=== PATIENT | female | born 1990 | race Caucasian/White ===

== ENCOUNTER → 2017-11-25 | Outpatient (CLI) | payer BC ==
--- NOTE | 2017-11-25 12:12 | Diagnostic Imaging Report ---
PROCEDURE: US Gallbladder. TECHNIQUE: Multiple real-time grayscale images were obtained over the right upper quadrant in various projections. INDICATION: Right upper quadrant pain COMPARISON: None FINDINGS: The liver appears unremarkable. There is no biliary dilatation. The common bile duct measures about 2 mm. Doppler imaging demonstrates normal hepatopedal flow in the main portal vein. The pancreas and gallbladder appear unremarkable. The right kidney measures 9.6 cm in length and appears normal. There is no ascites or sonographic Lynch's sign. IMPRESSION: No acute abnormality is demonstrated. Dictated by: Dictated on workstation # [id number]
== END ==
LOC: RAD 09:48
PROVIDERS: ATTEND Obstetrics & Gynecology
DX: R10.11 Right upper quadrant pain (principal)
CPT/HCPCS: 76705

== ENCOUNTER 2018-05-28 04:41 | Inpatient (IN) | payer BC ==
[2018-05-28] VITALS (29 sets, daily range): BP systolic 120–169; BP diastolic 65–103
[~2018-05-28] VITALS: Ht 162.6 cm; Wt 71.7 kg
[2018-05-28] MEDS ORDERED: AMPICILLIN 2,000 MG/20 ML (IV USE) ONE (05:07)
[2018-05-28] MEDS ORDERED: D5 LR IV SOLUTION 1,000 ML IV ONE (05:07)
[2018-05-28] MEDS ORDERED: NS (IVPB) 50 ML ONE (05:08)
[2018-05-28] MEDS ORDERED: AMPICILLIN FOR IV USE 2,000 MG in NS (IVPB) 50 ML IV SCH (05:14)
[2018-05-28] MEDS ORDERED: D5 LR IV SOLUTION 1,000 ML IV SCH (05:14)
[2018-05-28] MEDS ORDERED: MULT-633 PO (05:20)
[2018-05-28 05:57] LABS: BASOPHILS % (AUTO) 0 % (0-10); EOSINOPHILS # (AUTO) 0.2 10^3/uL (0.0-0.3); EOSINOPHILS % (AUTO) 2 % (0-10); HEMATOCRIT 34 % (35-52); HEMOGLOBIN 12.1 G/DL (11.5-16.0); LYMPHOCYTES # (AUTO) 2.3 X 10^3 (1.0-4.0); LYMPHOCYTES % (AUTO) 21 % (12-44); MEAN CORPUSCULAR HEMOGLOBIN 29 PG (25-34); MEAN CORPUSCULAR HGB CONC 36 G/DL (32-36); MEAN CORPUSCULAR VOLUME 81 FL (80-99); MONOCYTES # (AUTO) 0.8 X 10^3 (0.0-1.0); MONOCYTES % (AUTO) 7 % (0-12); NEUTROPHILS # (AUTO) 7.9 X 10^3 (1.8-7.8); NEUTROPHILS % (AUTO) 70 % (42-75); PLATELET COUNT 184 10^3/uL (130-400); RED CELL DISTRIBUTION WIDTH 14.1 % (10.0-14.5); WHITE BLOOD COUNT 11.3 10^3/uL (4.3-11.0)
[2018-05-28] MEDS ORDERED: OXYTOCIN/NORMAL SALINE 500 ML IV ONE (06:24)
[2018-05-28] MEDS ORDERED: OXYTOCIN/NORMAL SALINE 500 ML IV SCH ×2 (06:36→07:56)
[2018-05-28] MEDS ORDERED: SUFENTA 0.6MCG/ML BUPIVA 0.125 100 ML ONE (06:46)
[2018-05-28] MEDS ORDERED: fentaNYL INJECTION 100 MCG/2 ML AMP ONE (07:08)
[2018-05-28] MEDS ORDERED: LIDOCAINE PF 1% 5 ML (XYLOCAINE) AMP ONE (07:08)
[2018-05-28] MEDS ORDERED: BUPIVACAINE 0.25% 30 ML (SENSORCAINE) VIAL ONE (07:09)
[2018-05-28] MEDS ORDERED: FLU QUADRIvalent (5+ YOA) 2018-2019 (AFLURIA) 0.5 ML IM ONE (07:30)
[2018-05-28] MEDS ORDERED: LIDOCAINE PF 2% 5 ML (XYLOCAINE) VIAL ONE (07:43)
--- NOTE | 2018-05-28 07:56 | History & Physical ---
History and Physical Date Seen by Provider: May 28, 2018 Time Seen by Provider: 07:54 This patient is a 26-year-old G1 white female with a due date of 1317 presenting with spontaneous rupture membranes and active labor. GBS culture was positive and she was started on antibiotics on admission. She's had no problems with to date. Allergies are to sulfa which causes a rash Medications are vitamins Medical social histories are per the antepartum record HEENT exam is normal Neck is with no lymphadenopathy no thyromegaly Abdomen is gravid soft nontender nondistended Extremities show no clubbing cyanosis. There is no Homans sign. Pelvic exam per the nurse shows a cervix now 10 cm dilated 100 percent effaced vertex presentation with gross rupture membranes. monitor shows contractions about every 2 minutes with a normal heart rate pattern. Laboratory Tests 05/28/18 05:20 Assessment and plan term at 38 weeks gestation with spontaneous labor and with a somewhat precipitous course. Patient will deliver vaginally shortly. Allergies and Home Medications Allergies Coded Allergies: Sulfa (Sulfonamide Antibiotics) (Verified Allergy, Unknown, 05/28/18) Home Medications Multivitamin 1 Each Tablet, 1 EACH PO DAILY, (Reported) Patient Home Medication List Home Medication List Reviewed: Yes Clinical Quality Measures DVT/VTE Risk/Contraindication: Risk Factor Score Per Nursin RFS Level Per Nursing on Admit: 1=Low/No VTE PPX JIMI HIGHTOWER MD May 28, 2018 7:56 am
[2018-05-28] MEDS ORDERED: TETANUS,DIPTH,PERTUSS P/F (BOOSTRIX) 0.5 ML VIAL IM ONE (08:00)
[2018-05-28] MEDS ORDERED: ONDANSETRON 4 MG/2 ML (SDV) Z0FRAN IVP PRN (08:00)
[2018-05-28] MEDS ORDERED: oxyCODONE/APAP 5/325MG (PERCOCET 5) TABLET PO PRN (08:00)
[2018-05-28] MEDS ORDERED: MEASLES,MUMPS,RUBELLA 1 EA INJ SC ONE (08:00)
[2018-05-28] MEDS ORDERED: LIDOCAINE/EPI 2% 1:200,00 (XYLOCAINE) 10 ML VIAL ONE (08:10)
[2018-05-28] MEDS ORDERED: LACTATED RINGERS 1,000 ML IV SCH (08:46)
[2018-05-28] MEDS ORDERED: NALOXONE 0.4 MG/ML 1 ML (NARCAN) VIAL IV PRN ×2 (09:00)
[2018-05-28] MEDS ORDERED: METOCLOPRAMIDE INJ 10 MG/2 ML (REGLAN) IV PRN (09:00)
[2018-05-28] MEDS ORDERED: EPIDURAL (SUFENTA 0.6MCG/ML BUPIVA 0.125%) 100 ML BAG EPI PRN (09:00)
[2018-05-28] MEDS ORDERED: diphenhydrAMINE 50 MG/ML INJ (BENADRYL) IV PRN (09:00)
[2018-05-28] MEDS: DOCUSATE SODIUM 100 MG (COLACE) CAP PO SCH ×2 (09:00→20:10)
[2018-05-28] MEDS ORDERED: ONDANSETRON 4 MG/2 ML (SDV) Z0FRAN IV PRN (09:00)
[2018-05-28] MEDS ORDERED: AMPICILLIN FOR IV USE 1,000 MG in NS (IVPB) 50 ML IV SCH (09:15)
--- NOTE | 2018-05-28 10:38 | OPERATIVE REPORT ---
DATE OF SERVICE: 05/28/2018 DELIVERY NOTE The patient delivered by a term spontaneous vaginal delivery a viable female with Apgars of 8 and 9 at 1 and 5 minutes respectively, weight was 6 pounds 3 ounces, time of 09:02 and a cord arterial blood pH that is pending. The patient delivered over a second-degree perineal laceration under epidural and local analgesia. The was bulb suctioned on delivery of the head and again on completion of delivery. The umbilical cord was doubly clamped, father cut the cord and the baby was passed to mom's abdomen. The cervix, vagina, rectum and perineum were examined and found intact, except for the second-degree perineal laceration, which was repaired with a single suture of 3-0 Vicryl Rapide in the usual manner to good reapproximation and good hemostasis. Sponge and needle counts were correct on completion of delivery and repair. Estimated blood loss was around 300 mL. The patient remained in the LDR for recovery. The baby remained with the mom. Job ID: [id number] DocumentID: [id number] Dictated Date: 05/28/2018 09:20:16 Computer Game Programmer Date: 05/28/2018 10:37:50 Dictated By: JIMI HIGHTOWER MD MTDD
[2018-05-28] MEDS: KETOROLAC 30 MG/ML VIAL IV SCH ×2 (10:40→17:16)
[2018-05-28] MEDS: IBUPROFEN 800 MG (MOTRIN) TAB PO SCH (12:15)
[2018-05-28] MEDS: BENZOCAINE/MENTHOL (DERMOPLAST) 56 ML CAN TP PRN (12:30)
[2018-05-28] MEDS ORDERED: IBUPROFEN 800 MG (MOTRIN) TAB PO ONE (23:23)
[2018-05-29] MEDS: IBUPROFEN 800 MG (MOTRIN) TAB PO SCH ×5 (00:16→23:07)
[2018-05-29 01:34] VITALS: BP 122/71
[2018-05-29 05:59] VITALS: BP 129/84
--- NOTE | 2018-05-29 08:05 | Progress Note-Standard ---
Standard Progress Note Progress Notes/Assess & Plan Date Seen by a Provider: May 29, 2018 Time Seen by a Provider: 08:03 Progress/Assessment & Plan This patient is without complaint. She is ambulating, voiding, tolerating oral intake well has good pain control. Patient denies chest pain, denies shortness of breath, denies nausea vomiting, and denies headache. Vital signs are stable. Patient is afebrile. Vital Signs 05/28/18 05/29/18 08:45 05:59 Temp 97.6 Pulse 79 Resp 18 B/P (MAP) 129/84 (99) Pulse Ox 99 O2 Delivery Room Air The uterine fundus is firm below the umbilicus and nontender Extremities show no clubbing or cyanosis. There is no Homans sign. Assessment and plan day number 1 status post term spontaneous vaginal delivery doing well. Plan is for routine convalescence care today and discharge home tomorrow JIMI HIGHTOWER MD May 29, 2018 8:05 am
[2018-05-29] MEDS ORDERED: IBUP-1780 PO (08:07)
[2018-05-29] MEDS ORDERED: OXYC1TAB87 PO (08:07)
[2018-05-29] MEDS ORDERED: DOCU100C37 PO (08:07)
--- NOTE | 2018-05-29 08:08 | Discharge Instructions ---
Discharge Instructions Discharge Medications New, Converted or Re-Newed RX: RX on Chart Patient Instructions Patient Instructions: As directed Return to The Hospital For: As directed Activity & Diet Discharge Diet: No Restrictions Activity as Tolerated: No Orders-Post D/C & Referrals Follow Up Appt: Call to make follow up appt. for patient in 4 weeks. Activity Per routine post vaginal delivery instructions. Diet as tolerated Patient may shower or tub bathe as desired. JIMI HIGHTOWER MD May 29, 2018 8:08 am
[2018-05-29 11:45] VITALS: BP 118/80
--- NOTE | 2018-05-29 13:22 | Anesthesia-Regional Post-Op ---
Regional Patient Condition Mental Status: Alert, Oriented x3 Circulation: Same as Pre-Op Headache: Absent Sensation: Full Recovery Motor Block: Absent Post Op Complications Complications None Follow Up Care/Instructions Patient Instructions None needed. Anesthesia/Patient Condition Patient is doing well, no complaints, stable vital signs, no apparent adverse anesthesia problems. No complications reported per nursing. SHAHEED AVILA CRNA May 29, 2018 13:22
[2018-05-29 19:45] VITALS: BP 146/86
[2018-05-29] MEDS: DOCUSATE SODIUM 100 MG (COLACE) CAP PO SCH ×2 (22:22→23:07)
[2018-05-29] MEDS: KETOROLAC 30 MG/ML VIAL IV SCH ×2 (22:23→22:24)
[2018-05-30 04:45] VITALS: BP 133/79
[2018-05-30] MEDS: IBUPROFEN 800 MG (MOTRIN) TAB PO SCH (04:48)
--- NOTE | 2018-05-30 07:55 | Progress Note-Standard ---
Standard Progress Note Progress Notes/Assess & Plan Date Seen by a Provider: May 30, 2018 Time Seen by a Provider: 07:54 Progress/Assessment & Plan This patient is without complaint. She is ambulating, voiding, tolerating oral intake well has good pain control. Patient denies chest pain, denies shortness of breath, denies nausea vomiting, and denies headache. Vital signs are stable. Patient is afebrile. Vital Signs 05/28/18 05/29/18 08:45 05:59 Temp 97.6 Pulse 79 Resp 18 B/P (MAP) 129/84 (99) Pulse Ox 99 O2 Delivery Room Air The uterine fundus is firm below the umbilicus and nontender Extremities show no clubbing or cyanosis. There is no Homans sign. Assessment and plan day number 1 status post term spontaneous vaginal delivery doing well. Plan is for routine convalescence care today and discharge home tomorrow May 30, 2018 Patient is without complaint. She is ambulating, voiding, tolerating oral intake well has good pain control. Patient denies chest pain, denies shortness breath, denies nausea vomiting, and denies headache. Patient is requesting discharge home. Vital Signs 05/29/18 05/30/18 11:45 04:45 Temp 97.3 Pulse 89 Resp 16 B/P (MAP) 133/79 (97) Pulse Ox 98 O2 Delivery Room Air Vital signs are stable. Patient is afebrile. Fundus is firm below the umbilicus and nontender. Extreme show no clubbing cyanosis. There is no Homans sign. Assessment and plan day number 2 status post term spontaneous vaginal delivery at 38 weeks gestation. Plan is for discharge home with follow- up in clinic Final Diagnosis 38 week spontaneous vaginal delivery JIMI HIGHTOWER MD May 30, 2018 7:55 am
[2018-05-30] MEDS: DOCUSATE SODIUM 100 MG (COLACE) CAP PO SCH (09:12)
[2018-05-30 09:34] VITALS: BP 147/82
[2018-05-30 11:30] VITALS: BP 143/83
[2018-05-30] MEDS ORDERED: TETANUS,DIPTH,PERTUSS P/F (BOOSTRIX) 0.5 ML VIAL IM ONE (11:35)
[2018-05-30] MEDS: BENZOCAINE/MENTHOL (DERMOPLAST) 56 ML CAN TP PRN (11:40)
[2018-05-30] MEDS ORDERED: FLU QUADRIvalent (5+ YOA) 2018-2019 (AFLURIA) 0.5 ML IM ONE (11:43)
[2018-05-30 12:00] VITALS: BP 143/83
== END 2018-05-30 12:55 | disposition home or self-care (01) | DRG 807 ==
LOC: WSo 04:41 → LDRP 04:42 → WSo 05:20 → LDRP 05:20
PROVIDERS: ADMIT Obstetrics & Gynecology; ATTEND Obstetrics & Gynecology
PROC: 10E0XZZ Delivery of Products of Conception, External Approach (ICD-10-PCS; principal; 2018-05-28)
PROC: 0KQM0ZZ Repair Perineum Muscle, Open Approach (ICD-10-PCS; 2018-05-28)
DX: O70.1 Second degree perineal laceration during delivery (principal); O99.824 Streptococcus B carrier state complicating childbirth; Z37.0 Single live birth; Z3A.38 38 weeks gestation of pregnancy
CPT/HCPCS: 36415; 82570; 84156; 85025; 86850; 86900; 86901; 99212

== ENCOUNTER 2018-06-05 22:11 | Emergency (ER) | payer BC ==
[~2018-06-05] VITALS: Ht 162.6 cm; Wt 62.1 kg
[~2018-06-05 22:11] MED LIST: DOCU100C37 PO; IBUP-1780 PO; MULT-633 PO; OXYC1TAB87 PO
[2018-06-05] MEDS ORDERED: ONDANSETRON 4 MG (ZOFRAN) ORAL DISSOLVE TAB SL ONE (22:45)
[2018-06-05] MEDS ORDERED: ANTACID SUSP 30 ML UDC (MYLANTA) PO ONE (22:45)
[2018-06-05] MEDS ORDERED: LIDOCAINE 2% VISCOUS 15 ML UDC PO ONE (22:45)
[2018-06-05 23:03] LABS: BILIRUBIN,URINE NEGATIVE (NEGATIVE); CLARITY,URINE SLIGHTLY CLOUDY; COLOR,URINE YELLOW; GLUCOSE, URINE (UA) NEGATIVE (NEGATIVE); KETONES,URINE NEGATIVE (NEGATIVE); LEUKOCYTE ESTERASE ,URINE 3+ (NEGATIVE); NITRITE,URINE NEGATIVE (NEGATIVE); PH,URINE 5 (5-9); PROTEIN,URINE 1+ (NEGATIVE); UROBILINOGEN,URINE NORMAL (NORMAL)
[2018-06-05 23:12] LABS: BACTERIA,URINE FEW /HPF; RBC,URINE 50-100 /HPF; RENAL EPITHELIAL CELLS,URINE RARE /HPF; WBC,URINE 50-100 /HPF
[2018-06-06 00:01] LABS: BASOPHILS % (AUTO) 1 % (0-10); EOSINOPHILS # (AUTO) 0.3 10^3/uL (0.0-0.3); EOSINOPHILS % (AUTO) 3 % (0-10); HEMATOCRIT 34 % (35-52); HEMOGLOBIN 11.9 G/DL (11.5-16.0); LYMPHOCYTES % (AUTO) 24 % (12-44); MEAN CORPUSCULAR HEMOGLOBIN 29 PG (25-34); MEAN CORPUSCULAR HGB CONC 36 G/DL (32-36); MEAN CORPUSCULAR VOLUME 81 FL (80-99); MEAN PLATELET VOLUME 8.6 FL (7.4-10.4); MONOCYTES # (AUTO) 0.6 X 10^3 (0.0-1.0); MONOCYTES % (AUTO) 8 % (0-12); NEUTROPHILS # (AUTO) 5.2 X 10^3 (1.8-7.8); NEUTROPHILS % (AUTO) 65 % (42-75); PLATELET COUNT 278 10^3/uL (130-400); RED BLOOD COUNT 4.14 10^6/uL (4.35-5.85); WHITE BLOOD COUNT 8.1 10^3/uL (4.3-11.0)
[2018-06-06 00:21] LABS: ALANINE AMINOTRANSFERASE 29 U/L (0-55); ALBUMIN 3.7 GM/DL (3.2-4.5); ALKALINE PHOSPHATASE 82 U/L (40-136); BILIRUBIN,TOTAL 0.8 MG/DL (0.1-1.0); BUN/CREATININE RATIO 13; CALCIUM 9.2 MG/DL (8.5-10.1); CARBON DIOXIDE 20 MMOL/L (21-32); CHLORIDE 108 MMOL/L (98-107); CREATININE SERUM 0.87 MG/DL (0.60-1.30); GFR ESTIMATED > 60; GLUCOSE 102 MG/DL (70-105); LIPASE 13 U/L (8-78); POTASSIUM 3.4 MMOL/L (3.6-5.0); SODIUM 141 MMOL/L (135-145); TOTAL PROTEIN 6.7 GM/DL (6.4-8.2)
[2018-06-06] MEDS ORDERED: RX-ONDANSETRON 4 MG ODT (ZOFRAN) PPK #4 SL STA (00:41)
--- NOTE | 2018-06-06 00:41 | ED Abdominal Pain ---
General Chief Complaint: Abdominal/GI Problems Stated Complaint: ABD PAIN Nursing Triage Note: Pt ambulated to 4 w/o difficulty. Pt c/o upper abdominal pain radiating into the back. Pt delivered a baby last Wednesday via vaginal . Pt states she was seen in the ED at [facility] on Wednesday and was diagnosed with an ileus. Pt states pain has been worse after eating, but today pt became nauseated while eating. Pt states she has been having normal bowel movements. Sepsis Screen: No Definite Risk Source of Information: Patient Exam Limitations: No Limitations History of Present Illness Date Seen by Provider: Jun 06, 2018 Time Seen by Provider: 22:32 Initial Comments This 27-year-old young lady presents to the emergency room with upper abdominal pain day 7. She had been seen at [facility] in [place] on Wednesday for abdominal pain. She was told a suspected she had an ileus. This was treated and she has been able to produce a bowel movements but the pain has intensified. She has delayed exacerbation of pain after eating. The pain radiates into her back and her chest. She has had some nausea with it but no vomiting. She is afebrile. She has had a little bit of dysuria recently as well. Allergies and Home Medications Allergies Coded Allergies: Sulfa (Sulfonamide Antibiotics) (Verified Allergy, Unknown, 05/28/18) Home Medications Cephalexin 500 Mg Capsule, 500 MG PO QID Prescribed by: YODIT QURESHI on 06/06/18 014 Docusate Sodium 100 Mg Capsule, 100 MG PO BID Prescribed by: JIMI OLIVO on 05/29/18 08 Ibuprofen 800 Mg Tablet, 800 MG PO Q6H Prescribed by: JIMI OLIVO on 05/29/18 08 Multivitamin 1 Each Tablet, 1 EACH PO DAILY, (Reported) Omeprazole 20 Mg Capsule.dr, 20 MG PO BID Prescribed by: YODIT QURESHI on 06/06/18 014 Oxycodone HCl/Acetaminophen 1 Each Tablet, 1 TAB PO Q4H PRN for PAIN-MODERATE You may continue to take this medication as you were taking it when you were hospitalized for your delivery Prescribed by: JIMI OLIVO on 05/29/18 08 Patient Home Medication List Home Medication List Reviewed: Yes Review of Systems Review of Systems Constitutional: no symptoms reported EENTM: No Symptoms Reported Respiratory: No Symptoms Reported Cardiovascular: No Symptoms Reported Gastrointestinal: See HPI Genitourinary: See HPI Musculoskeletal: no symptoms reported Skin: no symptoms reported Psychiatric/Neurological: No Symptoms Reported Endocrine: No Symptoms Reported Hematologic/Lymphatic: No Symptoms Reported Past Abdphit-Yrjgvg-Xaolyr Hx Patient Social History Alcohol Use: Denies Use Recreational Drug Use: No Smoking Status: Never a Smoker 2nd Hand Smoke Exposure: No Recent Foreign Travel: No Contact w/Someone Who Travel: No Recent Infectious Disease Expo: No Recent Hopitalizations: No Physical Abuse: No Sexual Abuse: No Immunizations Up To Date Tetanus Booster (TDap): Unknown Seasonal Allergies Seasonal Allergies: No Past Medical History Surgeries: No Respiratory: No Currently Using CPAP: No Currently Using BIPAP: No Cardiac: No Neurological: No : No Reproductive Disorders: No Genitourinary: No Gastrointestinal: No Musculoskeletal: No Endocrine: No HEENT: No Cancer: No Psychosocial: No Integumentary: No Blood Disorders: No Adverse Reaction/Blood Tranf: No Physical Exam Vital Signs Vital Signs - First Documented 06/05/18 22:25 Temp 97.8 Pulse 64 Resp 14 B/P (MAP) 145/98 (114) Pulse Ox 98 O2 Delivery Room Air Capillary Refill : Less Than 3 Seconds Height/Weight/BMI Height: 5'4.00" Weight: 137lbs. 2.0oz. 62.460783wt; 27.1 BMI Method:Stated General Appearance: WD/WN, no apparent distress HEENT: PERRL/EOMI, normal ENT inspection, pharynx normal Neck: normal inspection Respiratory: lungs clear, normal breath sounds, no respiratory distress Cardiovascular: regular rate, rhythm, no edema, no murmur Gastrointestinal: normal bowel sounds, soft, tenderness (epigastrium and right upper quadrant) Extremities: normal inspection, no pedal edema Neurologic/Psychiatric: nursery attendant II-XII nml as tested, no motor/sensory deficits, alert, normal mood/affect, oriented x 3 Skin: normal color, warm/dry Progress/Results/Core Measures Results/Orders Lab Results Laboratory Tests Test 06/05/18 22:55 06/05/18 23:54 Range/Units Urine Color YELLOW Urine Clarity SLIGHTLY CLOUDY Urine pH 5 5-9 Urine Specific [place] 1.015 L 1.016-1.022 Urine Protein 1+ H NEGATIVE Urine Glucose (UA) NEGATIVE NEGATIVE Urine Ketones NEGATIVE NEGATIVE Urine Nitrite NEGATIVE NEGATIVE Urine Bilirubin NEGATIVE NEGATIVE Urine Urobilinogen NORMAL NORMAL MG/DL Urine Leukocyte Esterase 3+ H NEGATIVE Urine RBC (Auto) 5+ H NEGATIVE Urine RBC 50-100 H /HPF Urine WBC 50-100 H /HPF Urine Squamous Epithelial Cells 2-5 /HPF Urine Renal Epithelial Cells RARE /HPF Urine Crystals NONE /LPF Urine Bacteria FEW H /HPF Urine Casts NONE /LPF Urine Mucus SMALL H /LPF Urine Culture Indicated YES White Blood Count 8.1 4.3-11.0 10^3/uL Red Blood Count 4.14 L 4.35-5.85 10^6/uL Hemoglobin 11.9 11.5-16.0 G/DL Hematocrit 34 L 35-52 % Mean Corpuscular Volume 81 80-99 FL Mean Corpuscular Hemoglobin 29 25-34 PG Mean Corpuscular Hemoglobin Concent 36 32-36 G/DL Red Cell Distribution Width 14.0 10.0-14.5 % Platelet Count 278 130-400 10^3/uL Mean Platelet Volume 8.6 7.4-10.4 FL Neutrophils (%) (Auto) 65 42-75 % Lymphocytes (%) (Auto) 24 12-44 % Monocytes (%) (Auto) 8 0-12 % Eosinophils (%) (Auto) 3 0-10 % Basophils (%) (Auto) 1 0-10 % Neutrophils # (Auto) 5.2 1.8-7.8 X 10^3 Lymphocytes # (Auto) 2.0 1.0-4.0 X 10^3 Monocytes # (Auto) 0.6 0.0-1.0 X 10^3 Eosinophils # (Auto) 0.3 0.0-0.3 10^3/uL Basophils # (Auto) 0.0 0.0-0.1 10^3/uL Sodium Level 141 135-145 MMOL/L Potassium Level 3.4 L 3.6-5.0 MMOL/L Chloride Level 108 H 98-107 MMOL/L Carbon Dioxide Level 20 L 21-32 MMOL/L Anion Gap 13 5-14 MMOL/L Blood Urea Nitrogen 11 7-18 MG/DL Creatinine 0.87 0.60-1.30 MG/DL Estimat Glomerular Filtration Rate > 60 BUN/Creatinine Ratio 13 Glucose Level 102 70-105 MG/DL Calcium Level 9.2 8.5-10.1 MG/DL Corrected Calcium 9.4 8.5-10.1 MG/DL Total Bilirubin 0.8 0.1-1.0 MG/DL Aspartate Amino Transf (AST/SGOT) 24 5-34 U/L Alanine Aminotransferase (ALT/SGPT) 29 0-55 U/L Alkaline Phosphatase 82 40-136 U/L C-Reactive Protein High Sensitivity 2.17 H 0.00-0.50 MG/DL Total Protein 6.7 6.4-8.2 GM/DL Albumin 3.7 3.2-4.5 GM/DL Lipase 13 8-78 U/L My Orders Orders - YODIT SANTOS MD Ua Culture If Indicated (06/05/18 22:22) Ondansetron Oral Dissolve Tab (Zofran (06/05/18 22:45) Lidocaine 2% Viscous 15 Ml (Xylocaine Vi (06/05/18 22:45) Antacid Suspension (Mylanta Suspension (06/05/18 22:45) Urine Culture (06/05/18 22:55) Cbc With Automated Diff (06/05/18 23:32) Comprehensive Metabolic Panel (06/05/18 23:32) Hs C Reactive Protein (06/05/18 23:32) Lipase (06/05/18 23:32) Saline Lock/Iv-Start (06/05/18 23:32) Pantoprazole Tablet (Protonix Tablet) (06/06/18 00:45) Ceftriaxone For Iv Use (Rocephin For I (06/06/18 00:45) Rx-Ondansetron Po (Rx-Zofran Po) (06/06/18 00:41) Fentanyl Injection (Sublimaze Injection (06/06/18 02:15) Medications Given in ED Current Medications Medications Dose Ordered Sig/Benson Route Start Time Stop Time Status Last Admin Dose Admin Al Hydrox/Mg Hydrox/Simethicone 30 ml ONCE ONCE PO 06/05/18 22:45 06/05/18 22:46 DC 06/05/18 23:07 30 ML Ceftriaxone Sodium 1000 mg/ Sodium Chloride 50 ml @ 100 mls/hr ONCE ONCE IV 06/06/18 00:45 06/06/18 01:14 DC 06/06/18 01:11 100 MLS/HR Lidocaine HCl 15 ml ONCE ONCE PO 06/05/18 22:45 06/05/18 22:46 DC 06/05/18 23:07 15 ML Ondansetron HCl 8 mg ONCE ONCE SL 06/05/18 22:45 06/05/18 22:46 DC 06/05/18 22:55 8 MG Pantoprazole Sodium 40 mg ONCE ONCE PO 06/06/18 00:45 06/06/18 00:46 DC 06/06/18 01:11 40 MG Vital Signs/I&O 06/05/18 06/06/18 22:25 03:02 Temp 97.8 98.4 Pulse 64 61 Resp 14 18 B/P (MAP) 145/98 (114) 132/83 (99) Pulse Ox 98 100 O2 Delivery Room Air Room Air Blood Pressure Mean: 114 Progress Progress Note : Progress Note Patient was given a GI cocktail. This did initially improve her pain but did not improve her tenderness on reexamination. Workup was then pursued. There were no secondary signs of cholecystitis such as fever or leukocytosis. She was further treated with fentanyl and Protonix. An outpatient order for gallbladder ultrasound was provided. Rocephin was given for treatment of urinary tract infection. Departure Impression Primary Impression: Upper abdominal pain Additional Impressions: Nausea Urinary tract infection Qualified Codes: N39.0 - Urinary tract infection, site not specified; R31.9 - Hematuria, unspecified Disposition: HOME, SELF-CARE Condition: Improved Admissions Decision to Admit Reason: Admit from ER (General) Departure-Patient Inst. Referrals: CULLEN MCGOWAN DO (PCP/Family) Primary Care Physician Add. Discharge Instructions: You may have a clear liquid diet until about 03:00 this morning. Then do not eat or drink in preparation for possible ultrasound. Early this morning call the number on the ultrasound order form. They may request that you obtain an order from your primary care provider. Once ultrasound is performed, you may gradually advance your diet as tolerated. Avoid fatty or greasy foods. Take an antacid medication such as omeprazole as prescribed. Complete your antibiotic for urinary tract infection as prescribed. Start the antibiotic by Wednesday. Follow-up with your primary care provider and Dr. Odell as soon as possible. Return to care if you have worsening symptoms. Dissolve Zofran (ondansetron) under the tongue every 4 hours as needed for nausea or vomiting. Avoid ibuprofen use is much as possible as this may cause further stomach irritation. Percocet or hydrocodone may be used but you may wish to use a stool softener while on these medications to prevent constipation. All discharge instructions reviewed with patient and/or family. Voiced understanding. Scripts Omeprazole (Omeprazole) 20 Mg Capsule.dr 20 MG PO BID, #30 CAP Prov: YODIT SANTOS MD 06/06/18 Cephalexin (Keflex) 500 Mg Capsule 500 MG PO QID, #20 CAP Prov: YODIT SANTOS MD 06/06/18 Copy Copies To 1: CULLEN MCGOWAN DO Copies To 2: JIMI ODELL MD, JOSHUA T MD Jun 06, 2018 00:41
[2018-06-06] MEDS ORDERED: cefTRIAXone FOR IV USE 1,000 MG in NS (IVPB) 50 ML IV ONE (00:45)
[2018-06-06] MEDS ORDERED: PANTOPRAZOLE 40 MG (PROTONIX) TAB PO ONE (00:45)
[2018-06-06] MEDS ORDERED: CEPH-507 PO (01:48)
[2018-06-06] MEDS ORDERED: OMEP20CA12 PO (01:49)
[2018-06-06] MEDS ORDERED: fentaNYL INJECTION 100 MCG/2 ML AMP IVP ONE (02:15)
[2018-06-06 03:02] VITALS: BP 132/83
== END 2018-06-06 02:42 | disposition home or self-care (01) ==
LOC: EDUNIT# 22:11 → ER 22:12
DX: N39.0 Urinary tract infection, site not specified (principal); Z88.2 Allergy status to sulfonamides
CPT/HCPCS: 36415; 80053; 81000; 83690; 85025; 86141; 87088

== ENCOUNTER → 2018-06-06 | Outpatient (CLI) | payer BC ==
[~2018-06-06] MED LIST changes: +CEPH-507 PO; +OMEP20CA12 PO
--- NOTE | 2018-06-06 13:24 | Diagnostic Imaging Report ---
PROCEDURE: US Gallbladder. TECHNIQUE: Multiple Real-time grayscale images were obtained over the right upper quadrant in various projections. INDICATION: Right upper quadrant pain and nausea. FINDINGS: The liver is normal in size without focal lesions. There is no biliary ductal dilatation. The common bile duct measures 3 mm. There is no cholelithiasis, gallbladder wall thickening, or pericholecystic fluid. The visualized portions of the pancreas are unremarkable. The kidneys are normal. There is no ascites. IMPRESSION: Unremarkable right upper quadrant ultrasound. Dictated by: Dictated on workstation # [id number]
== END ==
LOC: RAD 11:50
PROVIDERS: ATTEND Family Medicine
DX: R10.11 Right upper quadrant pain (principal); R11.0 Nausea
CPT/HCPCS: 76705

== ENCOUNTER → 2018-06-24 | Outpatient (CLI) | payer BC ==
[~2018-06-24] MED LIST changes: +CATHETER FLUSH 10 ML SYR IV PRN
--- NOTE | 2018-06-24 14:33 | Diagnostic Imaging Report ---
CLINICAL INDICATION: Patient with upper abdominal pain. Comparison: Gallbladder ultrasound dated 06/06/2018. Procedure: The patient was administered 5.20 millicuries of technetium 99m Choletec. After 60 minutes of the images, one can of Ensure was drink followed by another 60 minutes of imaging. A nuclear medicine hepatobiliary scan with ejection fraction was performed. Findings: There is prompt uptake and excretion of radiotracer by the liver. Activity is visible in the gallbladder by 10 minutes and the small bowel by 20 minutes. Ejection fraction of the gallbladder is calculated at 31% (normal > 33 %). The gallbladder visibly empties on the scans following the ingestion of Ensure. Impression: Abnormal hepatobiliary scan with borderline low gallbladder ejection fraction of 31%. Considerations may include gallbladder dysmotility. Chronic cholecystitis is suspected to be less likely given patient's recent normal right upper quadrant ultrasound exam. Dictated by: Dictated on workstation # [id number]
== END ==
LOC: CARD 09:53
PROVIDERS: ATTEND Obstetrics & Gynecology
DX: R10.13 Epigastric pain (principal)
CPT/HCPCS: 78227

== ENCOUNTER → 2018-07-25 | Outpatient (CLI) | payer BC ==
[~2018-07-25] VITALS: Ht 162.6 cm; Wt 62.2 kg
[~2018-07-25] MED LIST changes: +ACHD5005 PO; -CATHETER FLUSH 10 ML SYR IV PRN
== END | disposition home or self-care (01) ==
LOC: PREOP 05:49
PROVIDERS: ATTEND Surgery
DX: Z01.818 Encounter for other preprocedural examination (principal)

== ENCOUNTER 2018-07-27 06:10 | Day surgery (SDC) | payer BC ==
[~2018-07-27] VITALS: Ht 162.6 cm; Wt 57.7 kg
[~2018-07-27 06:10] MED LIST changes: -ACHD5005 PO
[2018-07-27 06:20] VITALS: BP 104/76
[2018-07-27] MEDS ORDERED: metroNIDAZOLE 500MG/100ML IVPB 100 ML IV ONE (06:30)
[2018-07-27] MEDS ORDERED: ceFAZolin INJECTION 1,000 MG in NS (IVPB) 50 ML IV ONE (06:30)
[2018-07-27] MEDS: LACTATED RINGERS 1,000 ML IV PRN ×2 (06:41→08:10)
[2018-07-27] MEDS ORDERED: proPOfol 200 MG/20 ML (DIPRIVAN) VIAL IV ONE (06:47)
[2018-07-27] MEDS ORDERED: fentaNYL INJECTION 100 MCG/2 ML AMP ONE (06:47)
[2018-07-27] MEDS ORDERED: LIDOCAINE PF 2% 5 ML (XYLOCAINE) VIAL ONE (06:47)
[2018-07-27] MEDS ORDERED: ROCURONIUM 10 MG/ML 5 ML SYRINGE IV ONE (06:47)
[2018-07-27] MEDS ORDERED: ONDANSETRON 4 MG/2 ML (SDV) Z0FRAN ONE (06:47)
[2018-07-27] MEDS ORDERED: MIDAZOLAM 2 MG/2 ML (VERSED) VIAL ONE (06:48)
[2018-07-27] MEDS ORDERED: SEVOFLURANE (ULTANE) 15 ML INHAL SOLN ONE ×6 (06:49→09:00)
[2018-07-27] MEDS ORDERED: DEXAMETHASONE 10 MG/ML (DECADRON) 1 ML VIAL ONE (06:49)
[2018-07-27] MEDS ORDERED: NS (IVPB) 50 ML ONE (06:54)
[2018-07-27] MEDS ORDERED: ceFAZolin 1,000 MG/10 ML (ANCEF) VIAL ONE (06:54)
[2018-07-27 06:55] LABS: BASOPHILS % (AUTO) 1 % (0-10); EOSINOPHILS # (AUTO) 0.2 10^3/uL (0.0-0.3); EOSINOPHILS % (AUTO) 4 % (0-10); HEMATOCRIT 37 % (35-52); HEMOGLOBIN 12.9 G/DL (11.5-16.0); LYMPHOCYTES # (AUTO) 2.4 X 10^3 (1.0-4.0); LYMPHOCYTES % (AUTO) 43 % (12-44); MEAN CORPUSCULAR HEMOGLOBIN 28 PG (25-34); MEAN CORPUSCULAR HGB CONC 35 G/DL (32-36); MEAN CORPUSCULAR VOLUME 81 FL (80-99); MEAN PLATELET VOLUME 9.5 FL (7.4-10.4); MONOCYTES # (AUTO) 0.4 X 10^3 (0.0-1.0); MONOCYTES % (AUTO) 8 % (0-12); NEUTROPHILS # (AUTO) 2.4 X 10^3 (1.8-7.8); NEUTROPHILS % (AUTO) 44 % (42-75); PLATELET COUNT 280 10^3/uL (130-400); RED BLOOD COUNT 4.61 10^6/uL (4.35-5.85); RED CELL DISTRIBUTION WIDTH 12.9 % (10.0-14.5); WHITE BLOOD COUNT 5.4 10^3/uL (4.3-11.0)
[2018-07-27] MEDS ORDERED: BUP/EPI 0.5% 1:200,000 (SENSORCAINE) 30 ML VIAL ONE (07:30)
--- NOTE | 2018-07-27 07:46 | Progress Note-Pre Operative ---
Pre-Operative Progress Note H&P Reviewed The H&P was reviewed, patient examined and no changes noted. Date Seen by Provider: Jul 11, 2018 Time Seen by Provider: 16:40 Date H&P Reviewed: Jul 27, 2018 Time H&P Reviewed: 07:46 Pre-Operative Diagnosis: Chronic acalculous cholecystitis CARMELO GILBERT MD Jul 27, 2018 07:46
[2018-07-27] MEDS ORDERED: morphine INJ 10 MG/ML 1ML (SYR OR VIAL) IVP ONE (08:00)
[2018-07-27] MEDS ORDERED: fentaNYL INJECTION 100 MCG/2 ML AMP IVP ONE (08:00)
[2018-07-27] MEDS ORDERED: KETOROLAC 30 MG/ML VIAL IVP ONE (08:00)
[2018-07-27] MEDS ORDERED: ONDANSETRON 4 MG/2 ML (SDV) Z0FRAN IVP PRN (08:00)
[2018-07-27] MEDS ORDERED: MEPERIDINE (DEMEROL) INJ 50 MG/ML IVP ONE (08:00)
[2018-07-27] MEDS ORDERED: GLYCOPYRROLATE 0.2 MG/ML (ROBINUL) 2 ML VIAL ONE (08:54)
[2018-07-27] MEDS ORDERED: NEOSTIGMINE 1 MG/ML 5 ML SYRINGE ONE (08:55)
[2018-07-27] MEDS ORDERED: morphine INJ 10 MG/ML 1ML (SYR OR VIAL) ONE (08:57)
[2018-07-27] MEDS ORDERED: ACHD5005 PO (09:03)
--- NOTE | 2018-07-27 09:03 | Operative Report ---
Operative Report Date of Procedure/Surgery Jul 27, 2018 Surgeon (s) CARMELO GILBERT MD Veterinary Epidemiologist (s): N/A Post-Operative Diagnosis Same Procedure Performed Robotic-assisted cholecystectomy Description of Procedure Anesthesia Type: General Estimated blood loss (mL): 50 mL Specimen(s) collected/removed Gallbladder Description of the Procedure Indication for the procedure: This lady presented with symptoms due to chronic, acalculous cholecystitis and reduced ejection fraction of the gallbladder on HIDA scan. She was therefore offered cholecystectomy using minimally invasive technique with robotic assistance. Informed consent was obtained after reviewing the operative details and complications of wound infection, bile leak , persistence of symptoms requiring further evaluation etc. Description of the procedure: She was placed supine on the operating table and general anesthesia induced. A gram of Ancef and 500 mg of Flagyl were administered intravenously as prophylaxis against wound infection. Sequential compression devices were placed on the legs, to minimize the risk of venous thrombosis. Abdomen was prepared and draped in the usual sterile manner. A supraumbilical incision was made and pneumoperitoneum established using a Veress needle. Intra -abdominal pressure was maintained at 15 mmHg, using carbon dioxide insufflation. A 12 mm trocar was placed and anatomy visualized using the high definition, three-dimensional laparoscope associated with da Sosa system. Under direct view, I placed the 8 mm trocar over each side of the abdomen, followed by a 5 mm trocar over the left upper quadrant. She was then turned into reverse Trendelenburg position, with the right side up. The robotic system was then docked in place. The fundus of the gallbladder was retracted cephalad and the infundibulum grasped with Cadiere forceps. Peritoneum overlying Calot's triangle was incised using the Cook cautery, delineating the cystic duct and artery. Both were divided between locking clips. Cholecystectomy was then completed using the hook cautery. Subhepatic space was irrigated with saline and the gallbladder placed in an Endo Catch bag, being removed via the supraumbilical trocar site. The fascia over this incision was closed using #1 Vicryl and skin using 4-0 Vicryl, in a subcuticular fashion. 0.5 percent Marcaine with epinephrine was infiltrated along the incisions, both preemptively and at the conclusion of the operation. She tolerated the procedure well, was extubated in the operating room and taken to the recovery room in a stable condition. Findings of the Procedure see op report Allergies and Home Medications Allergies Coded Allergies: Sulfa (Sulfonamide Antibiotics) (Verified Allergy, Intermediate, RED RASH/ SWELLING, 07/25/18) Home Medications Multivitamin 1 Each Tablet, 1 EACH PO DAILY, (Reported) Patient Home Medication List Home Medication List Reviewed: Yes CARMELO GILBERT MD Jul 27, 2018 09:02
--- NOTE | 2018-07-27 09:04 | Discharge Inst-Simple/Standard ---
Discharge Inst-Standard Discharge Medications New, Converted or Re-Newed RX: RX on Chart Patient Instructions/Follow Up Plan of Care/Instructions/FU: Band-Aids off in 48 hours. Incentive spirometry. Follow-up in 3 weeks. Activity as Tolerated: Yes Discharge Diet: No Restrictions CARMELO GILBERT MD Jul 27, 2018 09:04
[2018-07-27 10:20] VITALS: BP 114/71
[2018-07-27] MEDS ORDERED: HYDROcodone/APAP 5 MG/325 MG (LORTAB) TAB ONE (10:26)
[2018-07-27] MEDS ORDERED: HYDROcodone/APAP 5 MG/325 MG (LORTAB) TAB PO ONE (10:30)
--- NOTE | 2018-07-27 10:49 | Anesthesia-General Post-Op ---
General Patient Condition Mental Status/LOC: Same as Preop Cardiovascular: Satisfactory Nausea/Vomiting: Absent Respiratory: Satisfactory Pain: Controlled Complications: Absent Post Op Complications Complications None Follow Up Care/Instructions Patient Instructions None needed. Anesthesia/Patient Condition Patient Condition Patient is doing well, no complaints, stable vital signs, no apparent adverse anesthesia problems. No complications reported per nursing. SHAHEED AVILA CRNA Jul 27, 2018 10:49
[2018-07-27 10:50] VITALS: BP 109/70
[2018-07-27 11:20] VITALS: BP 120/75
[2018-07-27 12:00] VITALS: BP 120/75
== END 2018-07-27 12:00 | disposition home or self-care (01) ==
LOC: SDC 06:10
PROVIDERS: ATTEND Surgery
DX: K81.1 Chronic cholecystitis (principal); K82.8 Other specified diseases of gallbladder; Z11.2 Encounter for screening for other bacterial diseases; Z88.2 Allergy status to sulfonamides
CPT/HCPCS: 36415; 84703; 85025; 87081